=== PATIENT | female | born 1930 | race Asian ===

== ENCOUNTER 2016-11-21 09:15 | Emergency (ER) | payer OTHER, MEDICAID ==
[~2016-11-21] VITALS: Ht 152.4 cm; Wt 49.9 kg
[2016-11-21 09:23] VITALS: BP 143/69
[2016-11-21] MEDS ORDERED: cefTRIAXone 1,000 MG in LIDOCAINE 1% ED 2.1 ML IM ONE (09:40)
[2016-11-21 10:17] VITALS: BP 143/69
== END 2016-11-21 10:17 | disposition home or self-care (01) ==
LOC: MED 09:15
DX: L03.213 Periorbital cellulitis (principal); E11.9 Type 2 diabetes mellitus without complications
CPT/HCPCS: 96372; 99283; J0696; J2001

== ENCOUNTER 2017-05-22 16:21 | Inpatient (IN) | payer OTHER, MEDICAID ==
[~2017-05-22] VITALS: Ht 157.5 cm; Wt 64.4 kg
[2017-05-22 16:45] VITALS: BP 114/71
[2017-05-22] MEDS ORDERED: ACETAMINOPHEN EXTRA STRENGTH 500 MG TAB PO ONE (16:55)
--- NOTE | 2017-05-22 17:07 | NUR ---
86 YO F BIB family member w/ c/o lower back pain that occured after a fall. Per family member, pt was trying to tie shoe and fell backwards after overcorrecting her balance. Pt a&o x 4. GCS 15. Pt is unable to ambulate at this time due to injury, but is usually able to ambulate w/ steady gait w/o assistive devices. Lower back observed for injury, no abnormalities or bruising noted at this time. Pt denies n/v. Denies hitting head. ER MD Farooq notified of pt status. Safety precautions in place. Pt needs met at this time. Will continue to monitor.
--- NOTE | 2017-05-22 17:38 | NUR ---
Pt being taken by w/c to XRAY accompanied by technician trainee.
--- NOTE | 2017-05-22 18:06 | NUR ---
Pt back from XRAY escorted to room 12 via w/c w/ instructional technology facilitator.
[2017-05-22] MEDS ORDERED: MORPHINE SULFATE 4 MG/ML SYR IVP ONE (18:55)
[2017-05-22] MEDS ORDERED: DONE5TAB6 PO (18:55)
[2017-05-22] MEDS ORDERED: GLIM2TAB PO (18:55)
[2017-05-22] MEDS ORDERED: ACETAMINOPHEN 325 MG TAB PO PRN (19:05)
[2017-05-22] MEDS ORDERED: HYDROcodone/APAP 7.5/325 MG 1 TAB PO PRN (19:05)
[2017-05-22] MEDS ORDERED: DOCUSATE SODIUM 100 MG GELCAP PO PRN (19:05)
[2017-05-22] MEDS ORDERED: ONDANSETRON 4 MG/2 ML VIAL IM/IVP PRN (19:05)
[2017-05-22] MEDS ORDERED: MORPHINE SULFATE 2 MG/ML SYR IVP PRN (19:05)
--- NOTE | 2017-05-22 19:14 | NUR ---
Pt report given to LIANE Herbert. Transfer of care at this time.
--- NOTE | 2017-05-22 19:35 | NUR ---
Patient will be admitted to care of [facility]. Admited to TELE. Will go to room 124B Belongings list completed. Report to LIANE OLMSTEAD AT BEDSIDE.
[2017-05-22] MEDS ORDERED: INSULIN LISPRO SLIDING SCALE 100 UNITS/ML VIAL SUBQ PRN (20:05)
[2017-05-22] MEDS ORDERED: DEXTROSE 50% 50 ML SYR IVP PRN (20:05)
[2017-05-22 20:09] LABS: HEMATOCRIT 42.9 % (36-48); HEMOGLOBIN 14.3 g/dL (12.0-16.0); MEAN CORPUSCULAR HEMOGLOBIN 29 pg (27-31); MEAN CORPUSCULAR HGB CONC 33 g/dL (33-37); PLATELET COUNT (AUTO) 185 K/uL (140-450); RED BLOOD CELL COUNT(AUTO) 4.93 MIL/uL (4.20-5.40); RED CELL DISTRIBUTION WIDTH 14.3 % (11.6-13.7); WHITE BLOOD COUNT (AUTO) 13.3 K/uL (4.8-10.8)
[2017-05-22 20:12] LABS: EOSINOPHILS % (MANUAL) 2 % (0-4); LYMPHOCYTES % (MANUAL) 10 % (20-46); MONOCYTES % (MANUAL) 4 % (5-12)
[2017-05-22 20:24] LABS: CHOL/HDL RATIO 3.3 (1-4.5); FREE T4 (FREE THYROXINE) 1.3 ng/dL (0.76-1.46); MAGNESIUM 2.1 mg/dL (1.8-2.4); THYROID STIMULATING HORMONE 1.09 uIU/mL (0.34-3.74)
[2017-05-22 20:25] LABS: PROTHROMBIN TIME 10.4 secs (10.8-13.4)
[2017-05-22 20:31] LABS: ALBUMIN 3.8 g/dL (3.4-5.0); ANION GAP 14.4 (8-16); CHLORIDE 101 mmol/L (98-107); GLUCOSE 159 mg/dL (74-106); POTASSIUM 4.4 mmol/L (3.5-5.1); SODIUM SERUM 139 mmol/L (136-145); TOTAL BILIRUBIN 0.8 mg/dL (0.0-1.0); UREA NITROGEN, BLOOD 19 mg/dL (7-18)
[2017-05-22 20:42] LABS: ASPARTATE AMINOTRANSFERASE 25 U/L (15-37)
[2017-05-22] MEDS: BLOOD GLUCOSE MONITORING 1 DEV DEV FS SCH (21:00)
[2017-05-22] MEDS: NACL 0.9% 1,000 ML IV SCH (21:00)
--- NOTE | 2017-05-22 21:00 | NUR ---
TRIED TO USE PHONE TO SPEAK TO PT WITH STEAMBOAT INSPECTOR, PT REFUSED TO GET PHONE AND KEPT PUSHING PHONE AWAY. PT PUSHES ANY PERSON THAT GETS NEAR HER. TRIED TO ADMINISTER INSULIN TO COVER BLOOD SUGAR 170, PT GRABBED MY ARM AND PUSHED AWAY. SINCE PT DIDN'T WANT PHONE, I TRIED TO EXPLAIN IT WAS INSULIN BY SHOWING HER AND POINTING TO ARM. PT THEN NODDED YES, BUT I TRIED TO GET NEAR HER SHE YELLED OUT AND PUSHED.
--- NOTE | 2017-05-22 22:45 | NUR ---
CALLED PT SON TO SPEAK TO HIM ABOUT PT REFUSING HELP FROM ANYONE AND INSISTING ON SITTING AT THE EDGE OF THE BED. PT DOES NOT WANT TO BE TOUCHED AND DOES NOT WANT ANYONE TO COME NEAR HER.
[2017-05-22 22:49] LABS: APPEARANCE,URINE CLEAR (CLEAR); BILIRUBIN,URINE NEGATIVE (NEGATIVE); BLOOD, URINE NEGATIVE (NEGATIVE); COLOR,URINE YELLOW (YELLOW); LEUKOCYTE ESTERASE ,URINE TRACE (NEGATIVE); NITRITE, URINE NEGATIVE (NEGATIVE); PH,URINE 6.5 (5.0-9.0); UGLUCOSE TRACE (NEGATIVE)
[2017-05-22 22:59] LABS: BARBITURATE, URINE NEG. ng/ml (NEG <=200); BENZODIAZEPINE, URINE NEG. ng/mL (NEG <=200); CANNABINOID, URINE NEG. ng/mL (NEG <=50); COCAINE, URINE NEG. ng/mL (NEG <=300); OPIATE, URINE NEG. ng/mL (NEG <=2000); PHENCYCLIDINE SCREEN,URINE NEG. ng/mL (NEG <=25)
--- NOTE | 2017-05-22 23:16 | NUR ---
PT DAUGHTER IN LAW CAME TO STAY WITH PT. PT DAUGHTER TRYING TO KEEP PT FROM DISCONNECTING TELE MONITOR BUT PT DOES NOT STOP TRYING TO PULL LEADS OFF.
[2017-05-22 23:19] LABS: RBC,URINE 0-5 (RARE) /HPF (0-5)
--- NOTE | 2017-05-22 23:21 | NUR ---
TRIED TO USE PHONE TO SPEAK TO PT WITH EDUCATIONAL ASSISTANT, PT REFUSED TO GET PHONE AND KEPT PUSHING PHONE AWAY. PT PUSHES ANY PERSON THAT GETS NEAR HER. TRIED TO ADMINISTER INSULIN TO COVER BLOOD SUGAR 170, PT GRABBED MY ARM AND PUSHED AWAY. SINCE PT DIDN'T WANT PHONE, I TRIED TO EXPLAIN IT WAS INSULIN BY SHOWING HER AND POINTING TO ARM. PT THEN NODDED YES, BUT I TRIED TO GET NEAR HER SHE YELLED OUT AND PUSHED. Addendum: 05/22/17 at 2330 by Ariana Mercer RN PLEASE DISREGARD WRONG INPUT.
--- NOTE | 2017-05-23 | NUR ---
VITAL SIGNS WITHIN NORMAL LIMITS. PT IN STABLE CONDITION, NO SIGNS OF DISTRESS NOTED. BED IN LOWEST POSITION, CALL LIGHT WITHIN REACH. WILL CONTINUE TO MONITOR.
[2017-05-23 00:01] VITALS: BP 127/64
[2017-05-23 04:00] VITALS: BP 144/62
--- NOTE | 2017-05-23 04:00 | NUR ---
VITAL SIGNS WITHIN NORMAL LIMITS. PT IN STABLE CONDITION, NO SIGNS OF DISTRESS NOTED. BED IN LOWEST POSITION, CALL LIGHT WITHIN REACH. WILL CONTINUE TO MONITOR.
[2017-05-23] MEDS ORDERED: cefTRIAXone 1,000 MG VIAL ONE (05:06)
[2017-05-23] MEDS: BLOOD GLUCOSE MONITORING 1 DEV DEV FS SCH ×3 (06:46→17:19)
[2017-05-23 07:28] LABS: BASOPHILS # (AUTO) 0.2 K/uL (0.00-0.22); BASOPHILS % (AUTO) 1.8 % (0.0-2.0); EOSINOPHILS # (AUTO) 0.1 K/uL (0-0.4); EOSINOPHILS % (AUTO) 1.6 % (0.0-4.0); HEMATOCRIT 41.2 % (36-48); HEMOGLOBIN 13.4 g/dL (12.0-16.0); LYMPHOCYTES # (AUTO) 1.2 K/uL (2.5-16.5); LYMPHOCYTES % (AUTO) 13.9 % (20.5-51.1); MEAN CORPUSCULAR HEMOGLOBIN 29 pg (27-31); MEAN CORPUSCULAR HGB CONC 33 g/dL (33-37); MEAN CORPUSCULAR VOLUME 88.1 fL (80-94); MONOCYTES # (AUTO) 0.6 K/uL (0.8-1.0); MONOCYTES % (AUTO) 6.9 % (1.7-9.3); NEUTROPHILS # (AUTO) 6.4 K/uL (1.8-7.7); NEUTROPHILS % (AUTO) 75.8 % (42.2-75.2); PLATELET COUNT (AUTO) 163 K/uL (140-450); RED BLOOD CELL COUNT(AUTO) 4.67 MIL/uL (4.20-5.40); RED CELL DISTRIBUTION WIDTH 14.4 % (11.6-13.7); WHITE BLOOD COUNT (AUTO) 8.5 K/uL (4.8-10.8)
--- NOTE | 2017-05-23 07:30 | NUR ---
RECEIVED PATIENT FROM GLAZING SUPERINTENDENT RN AYSHA. PATIENT IS AAOX3, S/P FALL AT HOME. PT IS RESTING IN BED, DENIES PAIN AT THIS TIME. VITAL SIGNS TAKEN. FAMILY BROUGHT BREAKFAST FROM HOME. NO SIGNS OF ACUTE DISTRESS AT THIS TIME. IV NOTED TO THE LEFT FA, PATENT AND INTACT, RECONNECTED IV AND INFUSING 60ML/HR IVF. FALL PRECAUTIONS IN PLACE, BED ALARM ON, WILL CONTINUE TO MONITOR.
--- NOTE | 2017-05-23 07:31 | NUR ---
ENDORSED PT IN STABLE CONDITION TO DAY SHIFT RN FOR CONTINUITY OF CARE.
[2017-05-23 08:00] VITALS: BP 128/42
[2017-05-23] MEDS ORDERED: GLIMEPIRIDE 2 MG TAB PO SCH (09:00)
[2017-05-23] MEDS ORDERED: LACTOBACILLUS RHAMNOSUS GG 1 EACH CAP PO SCH (09:00)
--- NOTE | 2017-05-23 10:05 | NUR ---
PT SITTING UP AND TRY TO GO TO RESTROOM. MEDICATED PT WITH NORCO FOR PAIN. THE SON HELPED PT WALKED TO RESTROOM, PT URINATED. PT SAFELY RETURNED TO BED. ALARM IS ON, CALL LIGHT WITHIN REACH.
--- NOTE | 2017-05-23 11:02 | NUR ---
PATIENT HAS BEEN SCREENED AND CATEGORIZED MODERATE NUTRITION RISK. PATIENT WILL BE SEEN WITHIN 3-5 DAYS OF ADMISSION. 05/25/17 - 05/27/[address]
[2017-05-23] MEDS: NACL 0.9% 1,000 ML IV SCH (11:43)
--- NOTE | 2017-05-23 11:56 | NUR ---
SUGAR CHECK 58, WILL ADMINISTER D 50 IVP AND RECHECK BLOOD SUGAR Addendum: 05/23/17 at 1807 by Richard Contreras RN PT HAS NO S/S OF HYPOGLYCEMIA.
[2017-05-23 12:00] VITALS: BP 102/63
--- NOTE | 2017-05-23 12:30 | NUR ---
RECHECKED BLOOD SUGAR 139, PT IS EATING LUNCH BROUGHT BY PT'S SON.
--- NOTE | 2017-05-23 14:30 | NUR ---
PT NOTES 4885/1430 PATIENT IS AN 86 Y/O FEMALE ADMITTED WITH BACK PAIN S/P FALL. XRAY L/S(+) AGE INDETERMINATE COMPRESS FX L1, CHRONIC L3, L4 FXS, NOTED BACK BRACE ORDERED, BUT NOT AT BEDSIDE STILL, ABLE TO FOLLOW UP WITH DR. BAILEY LATER IN PM AND INDICATED TO HOLD PT EVAL UNTIL BACK BRACE ARRIVES. WILL FOLLOW UP WITH PT EVAL ONCE BACK BRACE ARRIVES TOMORROW. NURSING AWARE.
[2017-05-23] MEDS ORDERED: HYDROcodone/APAP 5/325 MG 1 TAB TAB PO PRN (14:40)
[2017-05-23] MEDS ORDERED: DOCU-299 PO (15:41)
[2017-05-23] MEDS ORDERED: ACET-9525 PO (15:41)
[2017-05-23] MEDS ORDERED: SULF-59 PO (15:41)
[2017-05-23] MEDS ORDERED: LACT10CA PO (15:41)
[2017-05-23 16:00] VITALS: BP 108/68
--- NOTE | 2017-05-23 16:30 | NUR ---
GLUCOSE CHECK 178, PT REFUSED INSULIN BECAUSE PT'S SON STATED THAT HE JUST GIVE HER SOME FOOD LIKE 30 MIN AGO. NO S/S OF ACUTE DISTRESS NOTED
--- NOTE | 2017-05-23 16:55 | NUR ---
MARLINE NOTE CLINICAL INFORMATION FAXED TO [facility] / FAX# [phone], ATTN: DAVIDA #[phone] Addendum: 05/23/17 at 1708 by Jay Tidwell RN CLINICAL INFORMATION FAXED TO [facility] / FAX# [phone]
--- NOTE | 2017-05-23 17:55 | NUR ---
PT DISCHARGED PER MD ORDER. LOWER BACK PAIN 05/07 TOLERABLE. BINDER FOR BACK SUPPORT IS STILL ON. PT DENIES NAUSEA, DIZZINESS, AND VOMITING. NO S/S OF ACUTE DISTRESS. DISCHARGE INSTRUCTION AND MEDICATION TEACHING PROVIDED TO PT AND HER SON, VERBALIZED UNDERSTANDING. IV DC'D, TIP INTACT, PRESSURE APPLIED. WRIST BAND REMOVED. WHEEL PT TO OUTSIDE OF THE LOBBY. PT LEFT IN STABLE CONDITION AND WITH ALL HER BELONGINGS.
[2017-05-23] MEDS ORDERED: DONEPEZIL 10 MG TAB PO SCH (21:00)
[2017-05-24 08:35] LABS: T4 (THYROXINE) 7.8 ug/dL (4.5-12.0)
== END 2017-05-23 17:55 | disposition home health service (06) | DRG 552 ==
LOC: MED 16:21 → MTU 19:06
PROVIDERS: ADMIT Family Medicine Sports Medicine; ATTEND Family Medicine Sports Medicine
DX: S32.019A Unspecified fracture of first lumbar vertebra, initial encounter for closed fracture (principal); E11.9 Type 2 diabetes mellitus without complications; G30.9 Alzheimer's disease, unspecified; N39.0 Urinary tract infection, site not specified; I10 Essential (primary) hypertension; M51.36 Other intervertebral disc degeneration, lumbar region; W18.30XA Fall on same level, unspecified, initial encounter; Y93.89 Activity, other specified; Y92.009 Unspecified place in unspecified non-institutional (private) residence as the place of occurrence of the external cause; Y99.8 Other external cause status; Z79.4 Long term (current) use of insulin
CPT/HCPCS: 36415; 71045; 72072; 72100; 80048; 80053; 80305; 81001; 82150; 82948; 83036; 83690; 83735; 83880; 84100; 84436; 84439; 84443; 84479; 84484; 85025; 85610; 85730; 87081; 87086; 93005; 93925; 93970; 96374; 97110; 97535; 99285; J0696; J2270; J7030; J7060; Q0092

== ENCOUNTER 2018-04-22 13:40 | Inpatient (IN) | payer OTHER, MEDICAID ==
[~2018-04-22] VITALS: Ht 157.5 cm; Wt 60.8 kg
[~2018-04-22 13:40] MED LIST: ACET-9525 PO; DOCU-299 PO; DONE5TAB6 PO; GLIM2TAB PO; LACT10CA PO; SULF-59 PO
[2018-04-22 13:49] VITALS: BP 135/105
--- NOTE | 2018-04-22 13:55 | NUR ---
PATIENT WHEELCHAIR ASSISTED TO BED 1 AT THIS TIME.
--- NOTE | 2018-04-22 14:00 | NUR ---
PATIENT BIB SON TO ED WITH THE CHIEF C/O PAIN. PER SON PT HAVE BEEN COMPLAINING OF BODY PAIN SINCE 4DAYS. TAKING TYLENOL WITHOUT RELIEF. NO FALL PER SON. BRUISE NOTED ON LEFT BUTTOCK. NO N/V/D PER SON. SKIN IS PINK/WARM/DRY. PT MOANS. UNABLE TO GIVE UINFORMATION. HX OF MENTAL PROBLEM PER SON. LUNGS CLEAR BL. HR EVEN AND REGULAR. PT DENIES ANY FEVER, CP, SOB, OR COUGH AT THIS TIME; PATIENT STATES PAIN OF 10/10 PER SON. VSS; PATIENT POSITIONED FOR COMFORT; HOB ELEVATED; BEDRAILS UP X2; BED DOWN. ER MD MADE AWARE OF PT STATUS.
[2018-04-22] MEDS ORDERED: NACL 0.9% 500 ML IV SCH (14:33)
[2018-04-22] MEDS ORDERED: fentaNYL 0.05 MG/ML VIAL IVP ONE (14:35)
[2018-04-22 15:18] LABS: BASOPHILS # (AUTO) 0.1 K/uL (0.00-0.22); BASOPHILS % (AUTO) 0.6 % (0.0-2.0); EOSINOPHILS # (AUTO) 0.2 K/uL (0-0.4); EOSINOPHILS % (AUTO) 2.3 % (0.0-4.0); HEMATOCRIT 45.9 % (36-48); HEMOGLOBIN 15.3 g/dL (12.0-16.0); LYMPHOCYTES # (AUTO) 1.4 K/uL (2.5-16.5); LYMPHOCYTES % (AUTO) 17.3 % (20.5-51.1); MEAN CORPUSCULAR HEMOGLOBIN 29 pg (27-31); MEAN CORPUSCULAR HGB CONC 33 g/dL (33-37); MEAN CORPUSCULAR VOLUME 88.2 fL (80-94); MONOCYTES # (AUTO) 0.8 K/uL (0.8-1.0); NEUTROPHILS # (AUTO) 5.8 K/uL (1.8-7.7); NEUTROPHILS % (AUTO) 69.8 % (42.2-75.2); PLATELET COUNT (AUTO) 244 K/uL (140-450); RED CELL DISTRIBUTION WIDTH 14.1 % (11.6-13.7); WHITE BLOOD COUNT (AUTO) 8.3 K/uL (4.8-10.8)
[2018-04-22 15:22] LABS: ANION GAP 13.6 (8-16); CARBON DIOXIDE 27.9 mmol/L (21-32); CHLORIDE 100 mmol/L (98-107); GLUCOSE 152 mg/dL (74-106); POTASSIUM 4.5 mmol/L (3.5-5.1); SODIUM SERUM 137 mmol/L (136-145); UREA NITROGEN, BLOOD 17 mg/dL (7-18)
[2018-04-22 15:29] LABS: ALBUMIN 4.1 g/dL (3.4-5.0); ASPARTATE AMINOTRANSFERASE 30 U/L (15-37); TOTAL BILIRUBIN 1.2 mg/dL (0.0-1.0)
--- NOTE | 2018-04-22 15:32 | NUR ---
PT NOT BACK FROM X-RAY.
[2018-04-22 15:36] LABS: PROTHROMBIN TIME 9.9 secs (10.8-13.4)
--- NOTE | 2018-04-22 16:10 | NUR ---
UA COLLECTED VIA [facility] C[facility]. LAB AWARE.
[2018-04-22 16:31] LABS: APPEARANCE,URINE CLEAR (CLEAR); BILIRUBIN,URINE NEGATIVE (NEGATIVE); BLOOD, URINE NEGATIVE (NEGATIVE); COLOR,URINE YELLOW (YELLOW); LEUKOCYTE ESTERASE ,URINE NEGATIVE (NEGATIVE); NITRITE, URINE NEGATIVE (NEGATIVE); PH,URINE 6.5 (5.0-9.0); UGLUCOSE TRACE (NEGATIVE)
[2018-04-22] MEDS ORDERED: DOCUSATE SODIUM 100 MG GELCAP PO PRN (16:50)
[2018-04-22] MEDS ORDERED: ONDANSETRON 4 MG/2 ML VIAL IM/IVP PRN (16:50)
[2018-04-22] MEDS ORDERED: ACETAMINOPHEN 325 MG TAB PO PRN (16:50)
[2018-04-22] MEDS ORDERED: ERGO500028 PO (16:55)
[2018-04-22] MEDS ORDERED: GLIM2TAB2 PO (16:55)
[2018-04-22] MEDS ORDERED: INSULIN LISPRO SLIDING SCALE 100 UNITS/ML VIAL SUBQ PRN (17:00)
[2018-04-22] MEDS ORDERED: DEXTROSE 50% 50 ML SYR IVP PRN (17:00)
[2018-04-22 17:23] LABS: CHOL/HDL RATIO 3.2 (1-4.5); MAGNESIUM 2.4 mg/dL (1.8-2.4); PHOSPHORUS 3.1 mg/dL (2.5-4.9); THYROID STIMULATING HORMONE 0.69 uIU/mL (0.34-3.74)
--- NOTE | 2018-04-22 17:30 | NUR ---
Patient admitted to care of Dr. Gómez. Admited to Telemetry. Transferred pt. to room 112B on stable condition. Belongings list completed, belongings with son. Report to given to charge nurse
[2018-04-22 17:34] VITALS: BP 142/67
--- NOTE | 2018-04-22 17:34 | NUR ---
RECEIVED BEDSIDE REPORT FROM ER NURSE. PATIENT IS AWAKE. SHE IS CONFUSED. SPEAKS KOREAN. SON, [place] SAYS SHES BEEN CONFUSED FOR A YEAR AND UNABLE TO STATE HER NAME OR DATE ANYMORE. VITALS WNL. MRSA DONE. ALL ADMISSION QUESTIONS ANSWERED BY SON. Jennifer FA 22G INFUSING NS BOLUS AT THIS TIME. SKIN IS INTACT. FALL RISK PROTOCOL IN PLACE. PATIENT IS INCONTINENT AND UNABLE TO AMBULATE AT THIS TIME. BED IN LOW POSITION. CALL LIGHT WITHIN REACH. WILL CONTINUE TO MONITOR THE PATIENT.
[2018-04-22] MEDS: NACL 0.9% 1,000 ML IV SCH (18:19)
--- NOTE | 2018-04-22 18:50 | NUR ---
PATIENTS SON REQUESTING FOOD FOR HIS MOM. ASKED DR WORTHINGTON IF HE CAN CHANGE HER DIET TO DINNER. HE CHANGED IT. FNS SAID THEY WILL BRING HER A TRAY
[2018-04-22 19:07] LABS: PROTHROMBIN TIME 9.7 secs (10.8-13.4)
--- NOTE | 2018-04-22 19:19 | NUR ---
GAVE BEDSIDE REPORT TO HOOP EXPANDER NURSE. PATIENT ENDORSED IN STABLE CONDITION
--- NOTE | 2018-04-22 19:20 | NUR ---
RECEIVED REPORT FORM TRISH RN DAYSHIFT NURSE AT BEDSIDE FOR CONTINUITY OF CARE, PT IN STABLE CONDITION. SON AT BEDSIDE AND MRSA SWAB DONE.
--- NOTE | 2018-04-22 19:45 | NUR ---
RESIDENT MD DR. STRICKLAND MADE AWARE OF PT ADMISSION STRIP RHYTHM OF A-FIB. WILL CONTINUE TO MONITOR PT ON TELE. PT HAS NO S/S OF PAIN OR DISTRESS.
[2018-04-22 20:00] VITALS: BP 108/57
--- NOTE | 2018-04-22 20:07 | NUR ---
PT IN LOW BED WITH SIDE RAILS UP X2 AND ALL FALLS PRECAUTIONS IN PLACE. PT SPEAKS MOHAWK AND ACCORDING TO SON IS AOX1. SKIN INTACT AND IV RUNNING N/S AT 60 IV SITE ON LEFT F/A INTACT AND FLUSHED PATENT. PT HAS NO S/S OF PAIN OR DISTRESS NOTED. SON NO LONGER AT BEDSIDE. WILL CONTINUE TO MONITOR PT FOR PAIN AND SAFETY.
[2018-04-22] MEDS: BLOOD GLUCOSE MONITORING 1 DEV DEV FS SCH ×2 (20:59→21:10)
[2018-04-22] MEDS ORDERED: BLOOD GLUCOSE MONITORING 1 DEV DEV FS SCH (21:00)
[2018-04-22] MEDS: DONEPEZIL 10 MG TAB PO SCH (21:02)
--- NOTE | 2018-04-22 21:07 | NUR ---
PT IN BED ALL FALLS PRECAUTIONS IN PLACE. PT SPIT OUT DUE MEDICATION OF ARICEPT. F/S 157. NO S/S ORDERED AT THIS TIME. CNAS AT BEDSIDE, TURNING , CHANGING AND REPOSITIONING, PT HAS NO S/S OF PAIN OR DISTRESS NOTED.
[2018-04-22] MEDS: HYDROcodone/APAP 7.5/325 MG 1 TAB PO PRN (22:47)
--- NOTE | 2018-04-22 22:50 | NUR ---
PT RESTLESS WITH OCCASIONAL GRIMACING. PT CHANGED, BUT REFUSES TO BE REPOSITIONED. PT GIVEN 1 TAB NORCO PO/PRN FOR S/S OF PAIN. ALL FALLS PRECAUTIONS IN PLACE.
--- NOTE | 2018-04-22 23:45 | NUR ---
PT IN LOW BED WITH ALL FALLS PRECAUTIONS IN PLACE, V/S FOLLOWS T 98.3 P 83 R 18 B/P 132/62 02 95% ON R/A.
[2018-04-23] VITALS: BP 132/62
--- NOTE | 2018-04-23 00:30 | NUR ---
PT IN BED, PT TURNED AND CHANGED, HOWEVER SHE REFUSED TO BE REPOSITIONED. PT WAS COMABTIVE DURING CARE BUT CALMED DOWN AFTER CARE WAS PROVIDED.BED LOW AND ALL FALLS PRECAUTIONS IN PLACE.
[2018-04-23 04:00] VITALS: BP 154/69
--- NOTE | 2018-04-23 04:00 | NUR ---
PT IN BED , SHE WAS TURNED AND CHANGED BUT REFUSES TO BE REPOSITIONED. V/S FOLLOWS T 98.3 P 85 R 18 B/P 132/62 02 95 WITH ROOM AIR. PT F/S IS 145 NO COVERAGE NEEDED.
[2018-04-23] MEDS ORDERED: DEXTROSE 50% 50 ML SYR IVP PRN (04:05)
[2018-04-23] MEDS ORDERED: INSULIN LISPRO SLIDING SCALE 100 UNITS/ML VIAL SUBQ PRN (04:05)
[2018-04-23] MEDS: BLOOD GLUCOSE MONITORING 1 DEV DEV FS SCH ×4 (06:24→20:14)
--- NOTE | 2018-04-23 07:27 | NUR ---
REPORT GIVEN TO TRISH RN DAYSHIFT NURSE AT BEDSIDE FOR CONTINUITY OF CARE, PT IN STABLE CONDITION.
--- NOTE | 2018-04-23 07:28 | NUR ---
RECEIVED BEDSIDE REPORT FROM PROCESS CONTROL MANAGER NURSE. PATIENT IS AWAKE. SHES NOT ALERT AND ORIENTED, SHES CONFUSED. PER SON PATIENT DOES NOT SAY HER NAME OR BIRTHDAY ANYMORE. SKIN IS INTACT. IV ON L DA 22G INFUSING NS AT 60. CLEAN,DRY AND INTACT. TELE MONITOR IN PLACE. PATIENT ON BEDREST. FALL RISK PROTOCOL IN PLACE. DX FX AND HX OF FALLS. BED IN LOW POSITION. CALL LIGHT WITHIN REACH. WILL CONTINUE TO MONITOR THE PATIENT
[2018-04-23 08:00] VITALS: BP 140/64
[2018-04-23 08:08] LABS: BASOPHILS # (AUTO) 0.1 K/uL (0.00-0.22); EOSINOPHILS # (AUTO) 0.2 K/uL (0-0.4); EOSINOPHILS % (AUTO) 2.9 % (0.0-4.0); HEMATOCRIT 42.3 % (36-48); HEMOGLOBIN 13.7 g/dL (12.0-16.0); LYMPHOCYTES # (AUTO) 1.4 K/uL (2.5-16.5); LYMPHOCYTES % (AUTO) 23.6 % (20.5-51.1); MEAN CORPUSCULAR HEMOGLOBIN 29 pg (27-31); MEAN CORPUSCULAR HGB CONC 32 g/dL (33-37); MONOCYTES # (AUTO) 0.5 K/uL (0.8-1.0); MONOCYTES % (AUTO) 8.2 % (1.7-9.3); NEUTROPHILS # (AUTO) 3.7 K/uL (1.8-7.7); NEUTROPHILS % (AUTO) 64.3 % (42.2-75.2); PLATELET COUNT (AUTO) 219 K/uL (140-450); RED BLOOD CELL COUNT(AUTO) 4.75 MIL/uL (4.20-5.40); RED CELL DISTRIBUTION WIDTH 13.8 % (11.6-13.7); WHITE BLOOD COUNT (AUTO) 5.7 K/uL (4.8-10.8)
[2018-04-23 08:15] LABS: ANION GAP 5.2 (8-16); CARBON DIOXIDE 28.9 mmol/L (21-32); CHLORIDE 106 mmol/L (98-107); CREATININE 0.8 mg/dL (0.6-1.3); GLUCOSE 130 mg/dL (74-106); POTASSIUM 4.1 mmol/L (3.5-5.1); SODIUM SERUM 136 mmol/L (136-145); UREA NITROGEN, BLOOD 15 mg/dL (7-18)
[2018-04-23] MEDS ORDERED: ERGOCALCIFEROL 50,000 IU SGL PO SCH (09:00)
[2018-04-23] MEDS ORDERED: CALCIUM CARB/VIT-D 500 MG/200 IU 1 TAB PO SCH (09:00)
--- NOTE | 2018-04-23 09:00 | NUR ---
PATIENT LAYING IN BED. NO SIGNS OF DISTRESS. WILL CONTINUE TO MONITOR THE PATIENT
[2018-04-23] MEDS: DOCUSATE SODIUM 100 MG GELCAP PO SCH (11:13)
[2018-04-23] MEDS: ASPIRIN 81 MG TAB.CHEW PO SCH (11:13)
[2018-04-23] MEDS: GLIMEPIRIDE 2 MG TAB PO SCH (11:13)
[2018-04-23] MEDS: NACL 0.9% 1,000 ML IV SCH (11:20)
--- NOTE | 2018-04-23 11:20 | NUR ---
CRUSHED AND ADMINISTERED MEDS IN APPLE SAUCE. PATIENT TOLERATED WELL. GAVE THICKENED APPLE JUICE AFTER. WILL CONTINUE TO MONITOR THE PATIENT.
[2018-04-23] MEDS: HYDROcodone/APAP 7.5/325 MG 1 TAB PO PRN (11:39)
[2018-04-23 12:00] VITALS: BP 140/43
--- NOTE | 2018-04-23 12:52 | NUR ---
son at bedside. helped patient turn w police detective. patient tolerated well. will continue to monitor the patient
--- NOTE | 2018-04-23 14:00 | NUR ---
PATIENT IS REMOVING GOWN, REMOVING TELE MONITOR. PLACED NEW LEADS BACK ON THE PATIENT. REORIENTING PATIENT BUT PATIENT REMAINS CONFUSED AT BASELINE
--- NOTE | 2018-04-23 15:00 | NUR ---
PATIENT REMOVED IV. NEW IV PLACED ON R FA 22G INFUSING NS AT 60.
--- NOTE | 2018-04-23 15:48 | NUR ---
PATIENT PULLED ON IV AND DISCONNECTED THE IV. TOLD DR CRAWLEY IF HE WANTED TO CONSIDER MITTEN RESTRAINTS OR KEEP PATIENT WITHOUT IV. HE SAID IT IS OK WITH NO IV BUT TO MAKE SURE SHE DRINKS ENOUGH FLUIDS.
[2018-04-23 16:00] VITALS: BP 144/52
--- NOTE | 2018-04-23 16:33 | NUR ---
IV PULLED OFF, NO MORE IV. IV TIP INTACT. DR CRAWLEY SAID OK TO KEEP IT OFF.
--- NOTE | 2018-04-23 17:35 | NUR ---
PATIENT IN BED PULLING OFF GOWN, PULLING OFF SOCKS. REORIENTING PATIENT AT THIS TIME IS NOT EFFECTIVE AT THIS TIME.
--- NOTE | 2018-04-23 18:07 | NUR ---
gave bedside report to di. patient endorsed in stable condition. son at bedside feeding the patient
--- NOTE | 2018-04-23 18:10 | NUR ---
ASSUMED CARE FROM JUNIOR. PT ALERT AND AWAKE, EATING PUREE DIET MADE FROM HOME BROUGHT AND FED BY SON.
--- NOTE | 2018-04-23 19:00 | NUR ---
PT RESTING. NO SOB NOTED. FAMILY LEFT FOR THE NIGHT ENDORSED TO NEXT SHIFT NURSE FOR CONTINUITY OF CARE.
--- NOTE | 2018-04-23 19:20 | NUR ---
RECEIVED REPORT FROM LIANE PINA FOR CONTINUITY OF CARE. PT CONFUSED 87 YEAR OLD FEMALE THAT SPEAKS CANTONESE. PT IS ABLE TO MAKE NEEDS KNOWN, ABLE TO FOLLOW COMMANDS. PT ON BEDREST AND SKIN IS INTACT. PT REPORTED TO HAVE PULLED IV OUT TWICE, BUT DR OK WITH IT LONG PT EATING AND DRINKING REGULARLY. PT IS S/P FALL WITH SOME BRUISING AND FRACTURED RIGHT INFERIOR PUBIC RAMUS FRACTURE. VITAL SIGNS WITHIN NORMAL LIMITS. PT STABLE, DENIES HAVING ANY PAIN, NO SIGNS OF DISTRESS NOTED AT THIS TIME. PT POSITIONED FOR COMFORT. BED IN LOWEST POSITION, BED ALARM ON. WILL CONTINUE TO MONITOR.
--- NOTE | 2018-04-23 19:29 | NUR ---
RECEIVED REPORT FROM LIANE PINA FOR CONTINUITY OF CARE. PT CONFUSED 62 YEAR OLD FEMALE THAT SPEAKS CANTONESE. PT IS ABLE TO MAKE NEEDS KNOWN, ABLE TO FOLLOW COMMANDS. PT ON BEDREST AND SKIN IS INTACT. PT REPORTED TO HAVE PULLED IV OUT TWICE, BUT DR OK WITH IT LONG PT EATING AND DRINKING REGULARLY. VITAL SIGNS WITHIN NORMAL LIMITS. PT STABLE, DENIES HAVING ANY PAIN, NO SIGNS OF DISTRESS NOTED AT THIS TIME. PT POSITIONED FOR COMFORT. BED IN LOWEST POSITION, BED ALARM ON. WILL CONTINUE TO MONITOR. Addendum: 04/24/18 at 9584 by Ariana Mercer RN DISREGARD, WRONG PT.
[2018-04-23] MEDS: DONEPEZIL 10 MG TAB PO SCH (20:14)
[2018-04-23] MEDS: CALCIUM CARB/VIT-D 500 MG/200 IU 1 TAB PO SCH (20:14)
--- NOTE | 2018-04-23 20:25 | NUR ---
ADMINISTERED SCHEDULED MEDICATIONS, PT TOLERATED WELL. BED IN LOWEST POSITION, BED ALARM ON. WILL CONTINUE TO MONITOR.
--- NOTE | 2018-04-23 22:13 | NUR ---
PT AWAKE AND STABLE IN BED, DENIES HAVING ANY PAIN, NO SIGNS OF DISTRESS NOTED AT THIS TIME. PT POSITIONED FOR COMFORT. BED IN LOWEST POSITION, BED ALARM ON. WILL CONTINUE TO MONITOR.
[2018-04-24] VITALS: BP 120/90
--- NOTE | 2018-04-24 | NUR ---
VITAL SIGNS WITHIN NORMAL LIMITS. PT STABLE, DENIES HAVING ANY PAIN, NO SIGNS OF DISTRESS NOTED AT THIS TIME. PT POSITIONED FOR COMFORT. BED IN LOWEST POSITION, BED ALARM ON. WILL CONTINUE TO MONITOR.
[2018-04-24] MEDS: NACL 0.9% 1,000 ML IV SCH (02:09)
--- NOTE | 2018-04-24 02:14 | NUR ---
PT ASLEEP NOW, VISIBLE RISE AND FALL OF CHEST NOTED. PT STABLE, FLACC 0, NO SIGNS OF DISTRESS NOTED AT THIS TIME. PT POSITIONED FOR COMFORT. BED IN LOWEST POSITION, BED ALARM ON. WILL CONTINUE TO MONITOR.
[2018-04-24] MEDS: HYDROcodone/APAP 7.5/325 MG 1 TAB PO PRN (05:57)
[2018-04-24] MEDS: BLOOD GLUCOSE MONITORING 1 DEV DEV FS SCH ×4 (06:40→21:04)
[2018-04-24 07:05] LABS: BASOPHILS # (AUTO) 0.1 K/uL (0.00-0.22); BASOPHILS % (AUTO) 0.8 % (0.0-2.0); EOSINOPHILS # (AUTO) 0.2 K/uL (0-0.4); EOSINOPHILS % (AUTO) 2.6 % (0.0-4.0); HEMATOCRIT 40.5 % (36-48); HEMOGLOBIN 13.3 g/dL (12.0-16.0); LYMPHOCYTES # (AUTO) 1.3 K/uL (2.5-16.5); LYMPHOCYTES % (AUTO) 19.8 % (20.5-51.1); MEAN CORPUSCULAR HEMOGLOBIN 29 pg (27-31); MEAN CORPUSCULAR HGB CONC 33 g/dL (33-37); MONOCYTES # (AUTO) 0.6 K/uL (0.8-1.0); MONOCYTES % (AUTO) 8.9 % (1.7-9.3); NEUTROPHILS # (AUTO) 4.4 K/uL (1.8-7.7); NEUTROPHILS % (AUTO) 67.9 % (42.2-75.2); PLATELET COUNT (AUTO) 233 K/uL (140-450); RED BLOOD CELL COUNT(AUTO) 4.61 MIL/uL (4.20-5.40); RED CELL DISTRIBUTION WIDTH 13.7 % (11.6-13.7); WHITE BLOOD COUNT (AUTO) 6.5 K/uL (4.8-10.8)
[2018-04-24 07:12] LABS: ANION GAP 12.4 (8-16); CARBON DIOXIDE 29.4 mmol/L (21-32); CHLORIDE 99 mmol/L (98-107); CREATININE 0.8 mg/dL (0.6-1.3); GLUCOSE 151 mg/dL (74-106); POTASSIUM 3.8 mmol/L (3.5-5.1); SODIUM SERUM 137 mmol/L (136-145); UREA NITROGEN, BLOOD 14 mg/dL (7-18)
--- NOTE | 2018-04-24 07:20 | NUR ---
ENDORSED PT TO DAY SHIFT RN NORMA FOR CONTINUITY OF CARE AT PT BEDSIDE. PT IN STABLE CONDITION.
--- NOTE | 2018-04-24 07:20 | NUR ---
RECEIVED PATIENT REPORT AT BEDSIDE. PATIENT IS AWAKE AND ALERT. NO S/S OF DISTRESS. PATIENT ON ROOM AIR. NO IV LINE IN PLACE. BED LOWERED WITH CALL LIGHT WITHIN REACH. BED ALARM ON. WILL CONTINUE TO MONITOR
[2018-04-24 07:57] VITALS: BP 137/69
--- NOTE | 2018-04-24 08:26 | NUR ---
PATIENT HAS BEEN SCREENED AND CATEGORIZED MODERATE NUTRITION RISK. PATIENT WILL BE SEEN WITHIN 3-5 DAYS OF ADMISSION. 04/25/18[address]ARR[address]
--- NOTE | 2018-04-24 08:30 | NUR ---
PATIENT HAD A BM. STOOL LOOSE AND LARGE IN AMOUNT. PATIENT CLEANED AND REPOSITIONED FOR COMFORT. PT'S SON AT BEDSIDE
[2018-04-24] MEDS: GLIMEPIRIDE 2 MG TAB PO SCH (08:36)
[2018-04-24] MEDS: CALCIUM CARB/VIT-D 500 MG/200 IU 1 TAB PO SCH ×2 (08:36→20:54)
[2018-04-24] MEDS: ASPIRIN 81 MG TAB.CHEW PO SCH (08:36)
[2018-04-24] MEDS: DOCUSATE SODIUM 100 MG GELCAP PO SCH (08:39)
[2018-04-24 08:46] LABS: T4 (THYROXINE) 8.8 ug/dL (4.5-12.0)
[2018-04-24] MEDS ORDERED: ERGOCALCIFEROL 50,000 IU SGL PO SCH (09:00)
--- NOTE | 2018-04-24 10:54 | NUR ---
PT ASLEEP IN BED. NO S/S OF DISTRESS NOTED
[2018-04-24] MEDS: MORPHINE SULFATE 2 MG/ML SYR IVP PRN ×2 (12:42→17:55)
--- NOTE | 2018-04-24 13:25 | NUR ---
S.T. BEDSIDE SWALLOW EVAL COMPLETED See report for details. Pt presents with adequate oropharyngeal swallow function for textures given. P.O. trials of current diet textures from lunch tray were given to pt, yielding no overt s/s aspiration. Recommend: 1) Continue pureed diet, nectar thick liquids w/ 1:1 feeder, aspiration precautions. 2) P.O. meds crushed with nectar thick liquids that are not sweet, as pt expressed dislike for sweet juices, etc. No further tx indicated at this time. DC to [facility] [place] [place] care. Time [id number]
--- NOTE | 2018-04-24 14:24 | NUR ---
7949 INFORMATION FAXED TO [facility] AND SPOKE WITH FRANCISCO IN ADMISSION REGARDING PROBABLY DISCHARGE TOMORROW.
[2018-04-24 16:28] VITALS: BP 133/59
--- NOTE | 2018-04-24 18:15 | NUR ---
FAMILY MEMBERS PRESENT IN THE ROOM, FEEDING PATIENT DINNER. NO S/S OF DISTRESS NOTED
--- NOTE | 2018-04-24 19:09 | NUR ---
PT REPORT GIVEN AT BEDSIDE. PATIENT ENDORSED IN STABLE CONDITION
--- NOTE | 2018-04-24 19:10 | NUR ---
RECEIVED REPORT FROM LIANE GREEN FOR CONTINUITY OF CARE. PT CONFUSED 87 YEAR OLD FEMALE THAT SPEAKS CANTONESE. PT IS ABLE TO MAKE NEEDS KNOWN, ABLE TO FOLLOW COMMANDS. PT HAS 22G IV TO RIGHT WRIST/FOREARM. PT IS S/P FALL WITH SOME BRUISING AND FRACTURED RIGHT INFERIOR PUBIC RAMUS FRACTURE. VITAL SIGNS WITHIN NORMAL LIMITS. PT STABLE, DENIES HAVING ANY PAIN, NO SIGNS OF DISTRESS NOTED AT THIS TIME. PT POSITIONED FOR COMFORT. BED IN LOWEST POSITION, BED ALARM ON. WILL CONTINUE TO MONITOR.
--- NOTE | 2018-04-24 20:10 | NUR ---
Home Health Lpn Notes: Attempted to meet with Patient for screen. Patient, was sleeping, uncooperative, and unable to express needs or provide information. I will attempt to contact family. I attempted to contact Patient's son Jevon Dash at no response. I left him a MGS and request for a call back.
[2018-04-24] MEDS: DONEPEZIL 10 MG TAB PO SCH (20:54)
--- NOTE | 2018-04-24 21:00 | NUR ---
ADMINISTERED SCHEDULED MEDICATIONS, FLUSHING WITH WATER AFTER EACH ONE. PT TOLERATED WELL. BED IN LOWEST POSITION, CALL LIGHT WITHIN REACH. WILL CONTINUE TO MONITOR. Addendum: 04/24/18 at 2101 by Ariana Mercer RN DISREGARD, WRONG PT.
--- NOTE | 2018-04-24 21:01 | NUR ---
ADMINISTERED SCHEDULED MEDICATIONS, PT TOLERATED WELL. BED IN LOWEST POSITION, CALL LIGHT WITHIN REACH. WILL CONTINUE TO MONITOR.
[2018-04-24] MEDS ORDERED: INSULIN LISPRO SLIDING SCALE 100 UNITS/ML VIAL SUBQ PRN (21:05)
--- NOTE | 2018-04-24 21:24 | NUR ---
SPOKE TO DR BALLARD ABOUT PT BLOOD SUGAR BEING AT 214, BUT NO COVERAGE IS ORDERED. DR SAID SHE WOULD LOOK TO SEE IF PT NEEDED IT AND IF SO, SHE WOULD ORDER COVERAGE. DR BALLARD DID ORDER COVERAGE AND 4 UNITS WERE GIVEN TO PT, PT TOLERATED WELL.
[2018-04-25] VITALS: BP 91/73
--- NOTE | 2018-04-25 | NUR ---
VITAL SIGNS WITHIN NORMAL LIMITS. PT STABLE, FLACC 0, NO SIGNS OF DISTRESS NOTED AT THIS TIME. PT POSITIONED FOR COMFORT. BED IN LOWEST POSITION, BED ALARM ON. WILL CONTINUE TO MONITOR.
--- NOTE | 2018-04-25 01:45 | NUR ---
ENDORSED PT TO LIANE SHETTY. PT IN STABLE CONDITION.
--- NOTE | 2018-04-25 01:45 | NUR ---
RECEIVED ENDORSEMENT FROM CARRIE ROBFROG SHAKERSTUNTMAN NURSE FOR CHANGE OF ASSIGNMENT AND CONTINUITY OF CARE, PT IN BED IN STABLE CONDITION.
[2018-04-25] MEDS: NACL 0.9% 1,000 ML IV SCH (02:09)
--- NOTE | 2018-04-25 02:30 | NUR ---
PT IN LOW BED WITH ALL FALLS PRECAUTIONS IN PLACE. SHE IS AWAKE AND ALERT BUT AOX1 NO S/S OF PAIN OR DISTRESS NOTED. WILL CONTINUE TO MONITOR FOR PAIN AND SAFETY.
--- NOTE | 2018-04-25 05:30 | NUR ---
PT TURNED AND CHANGED. SHE DECLINES TO BE REPOSITIONED. NO S/S OF PAIN OR DISTRESS NOTE. BED LOW SIDE RAILS UP X2 AND ALL FALLS PRECAUTIONS IN PLACE..
[2018-04-25] MEDS: BLOOD GLUCOSE MONITORING 1 DEV DEV FS SCH ×2 (06:37→12:27)
--- NOTE | 2018-04-25 07:37 | NUR ---
ENDORSED CARE TO TRISH RN DAYSHIFT NURSE FOR CONTINUITY OF CARE, PT IN STABLE CONDITION.
--- NOTE | 2018-04-25 07:38 | NUR ---
RECEIVED BEDSIDE REPORT FROM SOILS TECHNICIAN NURSE. PATIENT IS AWAKE, ALERT AND ORIENTEDX0. UNABLE TO STATE HER NAME, BDAY, WHERE SHE IS, ETC. PER SON SHE IS NOT AWARE ANYMORE AND AT BASELINE. IV ON R WRIST 22G SL. CLEAN, DRY AND INTACT. SKIN IS INTACT. S/P FALL, FALL RISK PROTOCOL IN PLACE. PATIENT IS BEDREST. INCONTINENT. BED IN LOW POSITION. CALL LIGHT WITHIN REACH. WILL CONTINUE TO MONITOR THE PATIENT.
[2018-04-25 08:00] VITALS: BP 105/41
[2018-04-25 08:04] LABS: BASOPHILS # (AUTO) 0.1 K/uL (0.00-0.22); BASOPHILS % (AUTO) 0.9 % (0.0-2.0); EOSINOPHILS # (AUTO) 0.2 K/uL (0-0.4); EOSINOPHILS % (AUTO) 3.1 % (0.0-4.0); HEMATOCRIT 43.2 % (36-48); HEMOGLOBIN 14.2 g/dL (12.0-16.0); LYMPHOCYTES # (AUTO) 1.4 K/uL (2.5-16.5); LYMPHOCYTES % (AUTO) 21.1 % (20.5-51.1); MEAN CORPUSCULAR HEMOGLOBIN 29 pg (27-31); MEAN CORPUSCULAR HGB CONC 33 g/dL (33-37); MEAN CORPUSCULAR VOLUME 88.6 fL (80-94); MONOCYTES # (AUTO) 0.7 K/uL (0.8-1.0); MONOCYTES % (AUTO) 9.8 % (1.7-9.3); NEUTROPHILS # (AUTO) 4.4 K/uL (1.8-7.7); NEUTROPHILS % (AUTO) 65.1 % (42.2-75.2); PLATELET COUNT (AUTO) 251 K/uL (140-450); RED BLOOD CELL COUNT(AUTO) 4.88 MIL/uL (4.20-5.40); RED CELL DISTRIBUTION WIDTH 13.9 % (11.6-13.7); WHITE BLOOD COUNT (AUTO) 6.8 K/uL (4.8-10.8)
[2018-04-25] MEDS ORDERED: ASPI81CT95 PO (08:32)
[2018-04-25] MEDS ORDERED: CALC-55 PO (08:32)
[2018-04-25] MEDS ORDERED: HUMSLIDE SUBQ (08:32)
[2018-04-25 09:00] LABS: MAGNESIUM 2.4 mg/dL (1.8-2.4); PHOSPHORUS 3.5 mg/dL (2.5-4.9)
[2018-04-25 09:10] LABS: ANION GAP 9.9 (8-16); CARBON DIOXIDE 28.9 mmol/L (21-32); CHLORIDE 101 mmol/L (98-107); CREATININE 0.8 mg/dL (0.6-1.3); GLUCOSE 136 mg/dL (74-106); POTASSIUM 3.8 mmol/L (3.5-5.1); SODIUM SERUM 136 mmol/L (136-145); UREA NITROGEN, BLOOD 16 mg/dL (7-18)
--- NOTE | 2018-04-25 09:11 | NUR ---
FAXED PT NOTES AND SWALLOW EVAL TO [facility] [place] [phone]
[2018-04-25] MEDS: GLIMEPIRIDE 2 MG TAB PO SCH (09:53)
[2018-04-25] MEDS: ASPIRIN 81 MG TAB.CHEW PO SCH (09:54)
[2018-04-25] MEDS: HYDROcodone/APAP 7.5/325 MG 1 TAB PO PRN (09:55)
[2018-04-25] MEDS: CALCIUM CARB/VIT-D 500 MG/200 IU 1 TAB PO SCH (09:55)
[2018-04-25] MEDS: DOCUSATE SODIUM 100 MG GELCAP PO SCH (09:55)
--- NOTE | 2018-04-25 09:55 | NUR ---
ADMINISTERED MEDS. PATIENT TOLERATED WELL
--- NOTE | 2018-04-25 10:24 | NUR ---
RECEIVED A CALL FROM MARKUS AT [facility]. THE PATIENT CAN GO TO ROOM 34B UNDER DR. NEWTON ANYTIME. I CALLED [facility], , AND SET UP [facility] TRANSPORT FOR TODAY. CONFIRMATION NUMBER IS [id number]. THEY WILL CALL ME BACK TO TIME OF TRANSPORT. I INFORMED [employer] ROBTREATMENT [employer] MECHANIC NURS.
--- NOTE | 2018-04-25 11:00 | NUR ---
PATIENT CONTINUES TO REMOVE CLOTHES. REORIENTING PATIENT AT THIS TIME IS NOT EFFECTIVE
--- NOTE | 2018-04-25 11:33 | NUR ---
SPOKE WITH RUSSELL AT [facility] [place]. SHE SAID THAT [facility] WILL INTERIOR ASSEMBLIES DEVELOPER PROVER THE PATIENT ABOUT 1P.Tyra PRO RN CHARGE NURSE AWARE.
--- NOTE | 2018-04-25 12:20 | NUR ---
GAVE TELEPHONE REPORT TO [place]. GAVE CALL BACK NUMBER. NO OTHER QUESTIONS AT THIS TIME.
--- NOTE | 2018-04-25 12:27 | NUR ---
BS IS 64. GAVE OJ. PATIENT TOLERATED WELL
--- NOTE | 2018-04-25 12:50 | NUR ---
EDUCATED PATIENT ON DISEASE PROCESS, ABN S/SX, WHEN TO GO TO THE ER, FOLLOW UP W DR NEWTON AT [facility] [place] FOR PT, EDUCATED ON MEDS, EDUCATED ON THE REFUSAL OF VACCINES. PATIENT IS NONVERBAL. UNABLE TO VERBALIZE UNDERSTANDING. PATIENT UNABLE TO SIGN. REMOVED IV, TIP INTACT. REMOVED ID BANDS. PATIENT LEFT IN STABLE CONDITION W TRANSPORT.
== END 2018-04-25 12:50 | DRG 536 ==
LOC: MED 13:40 → MTU 16:53
PROVIDERS: ADMIT General Practice; ATTEND General Practice
DX: S32.591A Other specified fracture of right pubis, initial encounter for closed fracture (principal); M85.80 Other specified disorders of bone density and structure, unspecified site; I48.91 Unspecified atrial fibrillation; E11.9 Type 2 diabetes mellitus without complications; F02.80 Dementia in other diseases classified elsewhere, unspecified severity, without behavioral disturbance, psychotic disturbance, mood disturbance, and anxiety; G30.9 Alzheimer's disease, unspecified; K57.30 Diverticulosis of large intestine without perforation or abscess without bleeding; E80.6 Other disorders of bilirubin metabolism; W06.XXXA Fall from bed, initial encounter; M51.36 Other intervertebral disc degeneration, lumbar region; Z79.899 Other long term (current) drug therapy; Z74.01 Bed confinement status; Y93.89 Activity, other specified; Y92.092 Bedroom in other non-institutional residence as the place of occurrence of the external cause; Y99.8 Other external cause status; Z79.84 Long term (current) use of oral hypoglycemic drugs
CPT/HCPCS: 36415; 71045; 72131; 72192; 80048; 80053; 81003; 82948; 83036; 83605; 83735; 83874; 83880; 84100; 84436; 84443; 84479; 84484; 85025; 85610; 85730; 87040; 87081; 87086; 92610; 93005; 96374; 97110; 97116; 97530; 99285; J1644; J1815; J2270; J3010; J7030; Q0092